=== PATIENT | male | born 1945 | race African-American/Black ===

== ENCOUNTER 2017-04-15 23:59 | Observation (INO) | payer OTHER ==
[2017-04-16 00:13] VITALS: BMI 28.2
[2017-04-16] MEDS ORDERED: ASPIRIN 81 MG CHEWABLE TABLETS PO ONE (00:36)
[2017-04-16] MEDS ORDERED: MAG HYDROX/AL HYDROX/SIMETH 355 ML ORAL.SUSP PO ONE (00:54)
[2017-04-16] MEDS ORDERED: FAMOTIDINE 20 MG/50 ML IVPB 20 MG in PREMIX 50 IVPB ONE (00:54)
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
[2017-04-16] MEDS ORDERED: ASPIRIN 81 MG CHEWABLE TABLETS ONE (01:03)
[2017-04-16] MEDS ORDERED: MAG HYDROX/AL HYDROX/SIMETH 30 ML UNIT-DOSE CUP ONE (01:04)
[2017-04-16] MEDS ORDERED: FAMOTIDINE 20 MG/50 ML IVPB 50 ML IVPB ONE (01:04)
[2017-04-16 01:15] LABS: BASOPHIL 0.9 % (0-2.0); MCH 30.2 pg (25.7-33.7); MCHC 33.3 g/dl (32.0-35.9); MEAN CELL VOLUME 90.6 fl (80-96); MEAN PLT VOLUME 10.8 fl (7.5-11.1); NEUTROPHILS 70.9 % (42.8-82.8); PLATELET COUNT 115 K/MM3 (134-434); RDW 12.4 % (11.9-15.9); WHITE BLOOD COUNT 8.6 K/mm3 (4.0-10.0)
[2017-04-16 01:29] LABS: INR 1.35 (0.82-1.09); PROTHROMBIN TIME (PATIENT) 14.9 SEC (9.98-11.88)
[2017-04-16 01:47] LABS: ANION GAP 8 (8-16); BILIRUBIN,TOTAL 0.7 mg/dL (0.2-1.0); CALCIUM 9.8 mg/dL (8.5-10.1); CO2 31 mmol/L (21-32); CREATININE 1.3 mg/dL (0.7-1.3); GLUCOSE,RANDOM 91 mg/dL (74-106); MAGNESIUM 2.3 mg/dL (1.8-2.4); SGOT/AST 51 U/L (15-37); SGPT/ALT 163 U/L (12-78)
[2017-04-16 01:50] LABS: ALK PHOS 138 U/L (45-117); TROPONIN I < 0.02 ng/ml (0.00-0.05)
--- NOTE | 2017-04-16 06:59 | HP ---
Admitting History and Physical - Primary Care Physician PCP: Ramon Cristobal - Admission Chief Complaint: CP. NEIL History of Present Illness: Pt came to ER c/o CP and NEIL. Patient was admitted to Telemetry. Pt on his way to cardiology suite for stress test. Pt was not seen, examined. To return later for examination. History Source: Medical Record - Smoking History Smoking history: Never smoked Have you smoked in the past 12 months: No - Alcohol/Substance Use Hx Alcohol Use: No Home Medications - Allergies Allergies/Adverse Reactions: Allergies Allergy/AdvReac Type Severity Reaction Status Date / Time No Known Allergies Allergy Verified 04/16/17 00:06 - Home Medications Home Medications: Ambulatory Orders Levothyroxine [Synthroid -] 75 mcg PO DAILY 04/16/17 Physical Examination Vital Signs: Vital Signs Temperature 98.8 F 04/16/17 03:17 Pulse Rate 95 H 04/16/17 03:17 Respiratory Rate 19 04/16/17 03:17 Blood Pressure 156/86 04/16/17 03:17 O2 Sat by Pulse Oximetry (%) 99 04/16/17 03:17
[2017-04-16] MEDS ORDERED: LEVOTHYROXINE NA 75 MCG TABLET (FP) PO SCH (07:15)
[2017-04-16 09:38] LABS: MCH 30.9 pg (25.7-33.7); MCHC 33.8 g/dl (32.0-35.9); MEAN CELL VOLUME 91.4 fl (80-96); MEAN PLT VOLUME 10.5 fl (7.5-11.1); PLATELET COUNT 111 K/MM3 (134-434); RDW 12.4 % (11.9-15.9); WHITE BLOOD COUNT 8.3 K/mm3 (4.0-10.0)
[2017-04-16] MEDS ORDERED: ASPIRIN COATED 81 MG TABLET.EC PO SCH (10:00)
[2017-04-16 10:06] LABS: ALBUMIN 3.5 g/dl (3.4-5.0); ANION GAP 6 (8-16); CALCIUM 9.3 mg/dL (8.5-10.1); CO2 29 mmol/L (21-32); CREATININE 1.1 mg/dL (0.7-1.3); GLUCOSE,RANDOM 102 mg/dL (74-106); SGOT/AST 39 U/L (15-37); SGPT/ALT 132 U/L (12-78)
[2017-04-16 10:08] LABS: ALK PHOS 124 U/L (45-117); BILIRUBIN,TOTAL 0.8 mg/dL (0.2-1.0); TOT PROT 7.3 g/dl (6.4-8.2)
[2017-04-16 10:11] LABS: TROPONIN I 0.02 ng/ml (0.00-0.05)
--- NOTE | 2017-04-16 10:30 | EKG ---
Test Reason : Blood Pressure : / mmHG Vent. Rate : 099 BPM Atrial Rate : 099 BPM P-R Int : 190 ms QRS Dur : 090 ms QT Int : 328 ms P-R-T Axes : 067 070 022 degrees QTc Int : 420 ms NORMAL SINUS RHYTHM MINIMAL VOLTAGE CRITERIA FOR LVH, MAY BE NORMAL VARIANT NONSPECIFIC T WAVE ABNORMALITY ABNORMAL ECG NO PREVIOUS ECGS AVAILABLE Confirmed by LULA BROWN MD ([id number]) on 04/16/2017 10:30:13 AM Referred By: Confirmed By:LULA BROWN MD
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
[2017-04-16] MEDS ORDERED: DIPYRIDAMOLE 50 MG/10 ML VIAL IVPB ONE (11:51)
[2017-04-16] MEDS ORDERED: DIPYRIDAMOLE STRESS TEST 50 MG in DEXTROSE 5%-WATER - 40 ML IVPB ONE (11:55)
[2017-04-16 18:42] VITALS: BP 127/69; PULSE 74; TEMP 98
--- NOTE | 2017-04-16 19:12 | PN ---
Progress Note (short form) - Note Progress Note: I called the floor and inquire about the patient stress test report. I found out that pt was transferred out (at [facility]) for cardiac catheterization.
--- NOTE | 2017-04-18 21:54 | EKG ---
Test Reason : Blood Pressure : / mmHG Vent. Rate : 075 BPM Atrial Rate : 075 BPM P-R Int : 188 ms QRS Dur : 098 ms QT Int : 386 ms P-R-T Axes : 066 049 037 degrees QTc Int : 431 ms NORMAL SINUS RHYTHM MINIMAL VOLTAGE CRITERIA FOR LVH, MAY BE NORMAL VARIANT WHEN COMPARED WITH ECG OF 16-APR-2017 00:31, NO SIGNIFICANT CHANGE WAS FOUND Confirmed by SARTHAK TURNER, ONEYDA ([id number]) on 04/18/2017 9:54:22 PM Referred By: LULA BROWN Confirmed By:ONEYDA DE LEÓN MD
== END 2017-04-16 18:45 | disposition short-term general hospital (02) ==
LOC: JER 23:59 → JERBED 04-16 02:07 → UNDOADMOB 04-16 02:25 → JERBED 04-16 02:25 → J4W 04-16 03:09
PROVIDERS: ADMIT Family Medicine; ATTEND Specialist
PROC: 3E033GC Introduction of Other Therapeutic Substance into Peripheral Vein, Percutaneous Approach (ICD-10-PCS; principal; 2017-04-16)
DX: R07.9 Chest pain, unspecified (principal); I10 Essential (primary) hypertension; E03.9 Hypothyroidism, unspecified
CPT/HCPCS: 36415; 71020-TC; 78452-TC; 80053; 82550; 82553; 83690; 83735; 84484; 85025; 85027; 85610; 93005; 93010; 93017; 93306-TC; 99285-25; A9502; G0378; J1245

== ENCOUNTER 2018-05-13 15:55 | Emergency (ER) | payer OTHER ==
[2018-05-13 16:33] VITALS: BP 152/76; PULSE 74; TEMP 98.7; BMI 24.9
--- NOTE | 2018-05-13 16:38 | PDOC ---
Rapid Medical Evaluation Time Seen by Provider: 05/13/18 16:27 Medical Evaluation: Allergies Allergy/AdvReac Type Severity Reaction Status Date / Time No Known Allergies Allergy Verified 04/16/17 00:06 05/13/18 16:27 Pt. presents to the ED with R groin pain for approximately 2 weeks. Pain comes and goes. States the pain comes and goes. Seen in an urgent care today and told to come to the ED. Exam: Swelling to the R groin. Ambulatory Orders: CBC, CMP, UA, UC, IV insert Pt to proceed to ED for further evaluation Discharge Disposition - Diagnosis Right groin pain - Referrals - Patient Instructions - Post Discharge Activity
--- NOTE | 2018-05-13 17:38 | PDOC ---
History of Present Illness - History of Present Illness Initial Comments: 05/13/18 18:17 The patient is a 72 year old male with a significant past medical history of hypertension, hypothyroidism, hepatitis, CAD (s/p stent 2017), who presents to the emergency department complaining of 2 weeks of worsening right groin pain. He reports that the pain began after biking 2 weeks ago and is worsening since yesterday with increased swelling to the area. The patient states that the pain is a constant ache 8/10 in severity and radiates to his inner thigh. The patient visited his PCP this morning because his right groin was more swollen than usual who recommended that he visit Urgent Care. They attempted to move the hernia by pressing down on it in office and then recommended that he visit the ER for further care. The patient endorses 1 episode of diarrhea this morning after a regular bowel movement. Denies trauma and any recent injuries. Denies chest pain, shortness of breath, headache, and dizziness. Denies fevers, chills, nausea, vomiting, and constipation. Denies dysuria, frequency, urgency, and hematuria. Allergies: NKA. The patient states that percocet upsets his stomach. Past surgical history: colostomy ([facility]) Social history: Marijuana use, the patient states that he lost his appetite secondary to hypothyroidism PCP: Dr. Pam Ladd <Eva Mckenzie - Last Filed: 05/13/18 18:17> - General History Source: Patient Exam Limitations: No Limitations <Bob Valenzuela - Last Filed: 05/13/18 19:20> <Leighann Squires - Last Filed: 05/14/18 05:04> - General Chief Complaint: Edema Stated Complaint: PCP SENT/GROIN PAIN Time Seen by Provider: 05/13/18 16:27 Past History <Eva Mckenzie - Last Filed: 05/13/18 18:17> - Past Medical History HTN: Yes Thyroid Disease: Yes (Hypothyroid) - Surgical History Abdominal Surgery: Yes (Colostomy from [facility]) Orthopedic Surgery: Yes ([facility]) - Suicide/Smoking/Psychosocial Hx Smoking History: Never smoked Have you smoked in the past 12 months: No Hx Alcohol Use: No Drug/Substance Use Hx: No Substance Use Type: None Hx Substance Use Treatment: No <Bob Valenzuela - Last Filed: 05/13/18 19:20> <SquiresChelyLeighann - Last Filed: 05/14/18 05:04> - Past Medical History Allergies/Adverse Reactions: Allergies Allergy/AdvReac Type Severity Reaction Status Date / Time No Known Allergies Allergy Verified 04/16/17 00:06 Home Medications: Ambulatory Orders Levothyroxine [Synthroid -] 75 mcg PO DAILY 04/16/17 Tramadol HCl [Ultram] 50 mg PO BID #20 tablet MDD 2 05/13/18 Review of Systems - Review of Systems Able to Perform ROS?: Yes Comments:: 05/13/18 18:17 GENERAL/CONSTITUTIONAL: No fever or chills. No weakness. HEAD, EYES, EARS, NOSE AND THROAT: No change in vision. No ear pain or discharge. No sore throat. CARDIOVASCULAR: No chest pain or shortness of breath. RESPIRATORY: No cough, wheezing, or hemoptysis. GASTROINTESTINAL: +diarrhea. No nausea, vomiting, or constipation. GENITOURINARY: +pain to the right inguinal crease. No dysuria, frequency, or change in urination. MUSCULOSKELETAL: No joint or muscle swelling or pain. No neck or back pain. SKIN: No rash NEUROLOGIC: No headache, vertigo, loss of consciousness, or change in strength/ sensation. ENDOCRINE: No increased thirst. No abnormal weight change. HEMATOLOGIC/LYMPHATIC: No anemia, easy bleeding, or history of blood clots. ALLERGIC/IMMUNOLOGIC: No hives or skin allergy. <Eva Mckenzie - Last Filed: 05/13/18 18:17> *Physical Exam - Vital Signs Last Vital Signs Temp Pulse Resp BP Pulse Ox 98.7 F 74 18 152/76 99 05/13/18 16:30 05/13/18 16:30 05/13/18 16:30 05/13/18 16:30 05/13/18 16:30 - Physical Exam Comments: 05/13/18 18:20 GENERAL: Awake, alert, and fully oriented, in no acute distress HEAD: No signs of trauma EYES: PERRLA, EOMI, sclera anicteric, conjunctiva clear ENT: Auricles normal inspection, hearing grossly normal, nares patent, oropharynx clear without exudates. Moist mucosa NECK: Normal ROM, supple, no lymphadenopathy, JVD, or masses LUNGS: Breath sounds equal, clear to auscultation bilaterally. No wheezes, and no crackles HEART: Regular rate and rhythm, normal S1 and S2, no murmurs, rubs or gallops ABDOMEN: Soft, nontender, normoactive bowel sounds. No guarding, no rebound. No masses GENITOURINARY: +ttp of right inguinal crease. +4x4cm mass at the right inguinal crease, no erythema, no drainage. Non-tender testicles. EXTREMITIES: Normal range of motion, no edema. No clubbing or cyanosis. No cords, erythema, or tenderness NEUROLOGICAL: Cranial nerves II through XII grossly intact. Normal speech, normal gait SKIN: Warm, Dry, normal turgor, no rashes or lesions noted. <Eva Mckenzie - Last Filed: 05/13/18 18:17> - Vital Signs Last Vital Signs Temp Pulse Resp BP Pulse Ox 98.7 F 74 18 152/76 99 05/13/18 16:30 05/13/18 16:30 05/13/18 16:30 05/13/18 16:30 05/13/18 16:30 <Bob Valenzuela - Last Filed: 05/13/18 19:20> - Vital Signs Last Vital Signs Temp Pulse Resp BP Pulse Ox 98.7 F 74 18 152/76 99 05/13/18 16:30 05/13/18 16:30 05/13/18 16:30 05/13/18 16:30 05/13/18 16:30 <Leighann Squires - Last Filed: 05/14/18 05:04> ED Treatment Course - LABORATORY CBC & Chemistry Diagram: 05/13/18 17:58 05/13/18 17:48 - Medications Given in the ED: ED Medications Discontinued Medications Generic Name Dose Route Start Last Admin Trade Name Freq PRN Reason Stop Dose Admin Acetaminophen 1,000 mg 05/13/18 17:50 05/13/18 17:59 Ofirmev Injection - IVPB 05/13/18 17:51 1,000 mg ONCE ONE Administration Morphine Sulfate 2 mg 05/13/18 17:50 05/13/18 17:59 Morphine Injection - IVPUSH 05/13/18 17:51 2 mg ONCE ONE Administration <Eva Mckenzie - Last Filed: 05/13/18 18:17> - LABORATORY CBC & Chemistry Diagram: 05/13/18 17:58 05/13/18 17:48 <Bob Valenzuela - Last Filed: 05/13/18 19:20> - LABORATORY CBC & Chemistry Diagram: 05/13/18 17:58 05/13/18 17:48 - ADDITIONAL ORDERS Additional order review: Laboratory Results 05/13/18 05/13/18 19:08 17:48 Sodium 140 Potassium 4.4 Chloride 106 Carbon Dioxide 27 Anion Gap 7 L BUN 17 Creatinine 1.2 Creat Clearance w eGFR 59.86 Random Glucose 85 Calcium 9.8 Total Bilirubin 0.9 AST 28 D ALT 26 D Alkaline Phosphatase 112 Total Protein 8.3 H Albumin 4.3 Urine Color Telma Urine Appearance Cloudy Urine pH 5.0 Ur Specific [place] 1.027 Urine Protein Negative Urine Glucose (UA) Negative Urine Ketones 1+ H Urine Blood Negative Urine Nitrite Negative Urine Bilirubin Negative Urine Urobilinogen 2.0 Ur Leukocyte Esterase Negative 05/13/18 17:58 RBC 4.50 MCV 93.4 MCHC 33.9 RDW 12.9 MPV 10.4 Neutrophils % 61.1 Lymphocytes % 29.0 D Monocytes % 7.2 Eosinophils % 1.8 Basophils % 0.9 - Medications Given in the ED: ED Medications Discontinued Medications Generic Name Dose Route Start Last Admin Trade Name Milagro PRN Reason Stop Dose Admin Acetaminophen 1,000 mg 05/13/18 17:50 05/13/18 17:59 Ofirmev Injection - IVPB 05/13/18 17:51 1,000 mg ONCE ONE Administration Sodium Chloride 1,000 mls @ 1,000 mls/hr 05/13/18 17:50 05/13/18 17:59 Normal Saline - IV 05/13/18 18:49 1,000 mls/hr ASDIR STA Administration Morphine Sulfate 2 mg 05/13/18 17:50 05/13/18 17:59 Morphine Injection - IVPUSH 05/13/18 17:51 2 mg ONCE ONE Administration <Leighann Squires - Last Filed: 05/14/18 05:04> Medical Decision Making - Medical Decision Making 05/13/18 17:35 A portion of this note was written by my scribe, under my supervision. Vital Signs Temp Pulse Resp BP Pulse Ox 98.7 F 74 18 152/76 99 05/13/18 16:30 05/13/18 16:30 05/13/18 16:30 05/13/18 16:30 05/13/18 16:30 72 year old male with HTN, hepatitis, hypothroidism, CAD s/p cardiac stent p/w right groin pain. 2 weeks ago, was biking and noted right groin pain. yesterday , the pain worsened and now moderate to severe. The patient had contacted her PMD Dr. Ladd who advised pt to go to the ER. They had attempted to reduce a ?hernia, but was unable to do. Was sent to the ER. The patient reports that the pain radiates to inner thigh. Denies fevers, chills, nausea, vomiting. Had an episode of loose stools this morning. Denies dysuria or urinary hesitance. Denies trauma. I suspect that this is an inguinal hernia. Given that the patient is still passing his bowels and moving flatus, I have low suspicion for strangulation. 05/13/18 19:20 An attempt was made a reduction of the right inguinal hernia. However, the patient had persistent pain. Though I feel that the hernia may have potentially reduced, the patient reports that he thinks the hernia may still be persistent. Will obtain labs and CT scan of abdomen and pelvis. Pt signed out to Dr. Squires for further management and disposition. <Bob Valenzuela - Last Filed: 05/13/18 19:20> - Medical Decision Making 05/14/18 05:03 I received on signout. CT scan shows bilat fat containing inguinal hernias. Pt will be discharged home with instructions to return for inguinal bulge/pain that doesn't remit, or for nausea and vomiting or fever. I spoke to Dr. Cristobal , who will notify pt's PMD Dr. Pam Ladd of patient's findings. Pt will be d/c home with his . <Leighann Squires - Last Filed: 05/14/18 05:04> *DC/Admit/Observation/Transfer - Attestations Scribe Attestion: 05/13/18 18:25 Documentation prepared by Eva Mckenzie, acting as manager medical device for Bob Valenzuela MD. <Eva Mckenzie - Last Filed: 05/13/18 18:17> <Park,Bob - Last Filed: 05/13/18 19:20> - Discharge Dispostion Decision to Admit order: No <SquiresLeighann - Last Filed: 05/14/18 05:04> Diagnosis at time of Disposition: Right groin pain, Bilateral inguinal hernia - Discharge Dispostion Disposition: HOME Condition at time of disposition: Stable - Prescriptions Prescriptions: Tramadol HCl [Ultram] 50 mg PO BID #20 tablet MDD 2 - Referrals Referrals: Pam Ladd MD [Primary Care Provider] - - Patient Instructions Printed Discharge Instructions: Groin Hernia -- Adult, DI for General Gallbladder Conditions - Post Discharge Activity
[2018-05-13] MEDS ORDERED: ACETAMINOPHEN 1000 MG/100 ML VIAL (NON FORMULARY) IVPB ONE (17:50)
[2018-05-13] MEDS ORDERED: morphine CARPU-JECT 4 MG/1 ML DISP.SYRIN IVPUSH ONE (17:50)
[2018-05-13] MEDS ORDERED: SODIUM CHLORIDE 1,000 ML IV STA (17:50)
[2018-05-13 18:03] LABS: BASO % 0.9 % (0-2.0); EOS % 1.8 % (0-4.5); HEMATOCRIT 42.1 % (35.4-49); HEMOGLOBIN 14.2 GM/dL (11.7-16.9); MCH 31.6 pg (25.7-33.7); MCHC 33.9 g/dl (32.0-35.9); MEAN CELL VOLUME 93.4 fl (80-96); MEAN PLT VOLUME 10.4 fl (7.5-11.1); MONO % 7.2 % (3.8-10.2); NEUT % 61.1 % (42.8-82.8); PLATELET COUNT 129 K/MM3 (134-434); RDW 12.9 % (11.9-15.9); WHITE BLOOD COUNT 6.4 K/mm3 (4.0-10.0)
[2018-05-13] MEDS ORDERED: ACETAMINOPHEN INJECTION 100 ML IVPB ONE (18:03)
[2018-05-13] MEDS ORDERED: MORPHINE SULFATE 2 MG/ML VIAL ONE (18:03)
[2018-05-13 18:46] LABS: ALBUMIN 4.3 g/dl (3.4-5.0); ANION GAP 7 (8-16); BILIRUBIN,TOTAL 0.9 mg/dL (0.2-1.0); BLOOD UREA NITROGEN 17 mg/dL (7-18); CALCIUM 9.8 mg/dL (8.5-10.1); CHLORIDE 106 mmol/L (98-107); CO2 27 mmol/L (21-32); CREATININE 1.2 mg/dL (0.7-1.3); GLUCOSE,RANDOM 85 mg/dL (74-106); POTASSIUM 4.4 mmol/L (3.5-5.1); SGOT/AST 28 U/L (15-37); SGPT/ALT 26 U/L (12-78); SODIUM 140 mmol/L (136-145); TOT PROT 8.3 g/dl (6.4-8.2)
[2018-05-13 18:47] LABS: ALK PHOS 112 U/L (45-117)
[2018-05-13 19:22] LABS: URINE APPEARANCE CLOUDY; URINE BILIRUBIN NEGATIVE (<2.0 mg/dL); URINE COLOR AMBER; URINE GLUCOSE (UA) NEGATIVE (NEGATIVE); URINE KETONE 1+ (NEGATIVE); URINE LEUK ESTERASE NEGATIVE (NEGATIVE); URINE NITRITE NEGATIVE (NEGATIVE); URINE PROTEIN NEGATIVE (NEGATIVE)
== END 2018-05-13 22:28 | disposition home or self-care (01) ==
LOC: JER 15:55
DX: K40.20 Bilateral inguinal hernia, without obstruction or gangrene, not specified as recurrent (principal); I25.10 Atherosclerotic heart disease of native coronary artery without angina pectoris; I10 Essential (primary) hypertension; Z95.5 Presence of coronary angioplasty implant and graft; E03.9 Hypothyroidism, unspecified; K75.9 Inflammatory liver disease, unspecified; Z87.828 Personal history of other (healed) physical injury and trauma
CPT/HCPCS: 36415; 74177-TC; 80053; 81003; 85025; 87086; 99282-25; J0131; J7030